=== PATIENT | male | born 1995 | race Hispanic/Latino ===

== ENCOUNTER 2018-03-17 21:09 | Observation (INO) | payer BC, OTHER ==
[2018-03-17] MEDS ORDERED: Sodium Chloride 0.9% 1,000 ML IV STA (22:12)
--- NOTE | 2018-03-17 22:36 | ED PDOC ---
HPI: Abdomen Time Seen by Provider: 03/17/18 21:39 Chief Complaint (Nursing): Abdominal Pain History Per: Patient History/Exam Limitations: no limitations Onset/Duration Of Symptoms: Hrs Outside of [place] travel?: No Current Symptoms Are (Timing): Better Location Of Pain/Discomfort: RLQ, Periumbilical Quality Of Discomfort: Unable To Describe Associated Symptoms: Fever, Chills, Nausea, Vomiting. denies: Diarrhea, Loss Of Appetite Additional Complaint(s): No PMHX presenting with abdominal pain, states that it started this afternoon, R sided, assoc. w/ 4 episodes of non bloody, non bilious vomiting. States he felt fevrish and had chills at home. Normal BM's, no urine output today, patient states that he feels dehydrated. No surgeries in the past. States he' d had similar symptoms in the past 8 months approx. 4 times, but never to this extent. Past Medical History Reviewed: Historical Data, Nursing Documentation, Vital Signs Vital Signs: Last Vital Signs Temp 99.1 F 03/18/18 02:18 Pulse 91 H 03/18/18 02:18 Resp 20 03/18/18 02:18 BP 109/66 03/18/18 02:18 Pulse Ox 99 03/18/18 02:18 - Surgical History Surgical History: No Surg Hx - Family History Family History: States: Unknown Family Hx - Home Medications Home Medications: Ambulatory Orders Medication Instructions Recorded No Known Home Med 03/18/18 - Allergies Allergies/Adverse Reactions: Allergies Allergy/AdvReac Type Severity Reaction Status Date / Time No Known Allergies Allergy Verified 03/17/18 21:35 Review of Systems ROS Statement: Except As Marked, All Systems Reviewed And Found Negative Constitutional: Positive for: Fever, Chills Gastrointestinal: Positive for: Nausea, Vomiting, Abdominal Pain Physical Exam - Reviewed Nursing Documentation Reviewed: Yes Vital Signs Reviewed: Yes - Physical Exam Appears: Positive for: Well, Non-toxic, No Acute Distress Head Exam: Positive for: ATRAUMATIC, NORMAL INSPECTION, NORMOCEPHALIC Skin: Positive for: Normal Color, Warm, DRY Eye Exam: Positive for: EOMI, Normal appearance, PERRL ENT: Positive for: Normal ENT Inspection Neck: Positive for: Normal, Painless ROM Cardiovascular/Chest: Positive for: Regular Rate, Rhythm Respiratory: Positive for: CNT, Normal Breath Sounds Gastrointestinal/Abdominal: Positive for: Normal Exam, Soft, Tenderness (RLQ, periumbilical tenderness). Negative for: Mass, Guarding, Rebound Back: Positive for: Normal Inspection Extremity: Positive for: Normal ROM Neurologic/Psych: Positive for: Alert, Oriented - Laboratory Results Result Diagrams: 03/17/18 23:17 03/17/18 23:17 - ECG O2 Sat by Pulse Oximetry: 96 Pulse Ox Interpretation: Normal Medical Decision Making Medical Decision MakinPM A/P: No PMHx p/w RLQ/periumbilican pain -patient well appearing with normal vitals -ddx: appendicitis, mesenteric adenitis, colitis -will need labs, CT, re-eval 0023 CT FINDINGS: Lung bases: Unremarkable. No mass. No consolidation. ABDOMEN: Liver: Unremarkable. No mass. Gallbladder and bile ducts: Unremarkable. No calcified stones. No ductal dilation. Pancreas: Unremarkable. No mass. No ductal dilation. Spleen: Unremarkable. No splenomegaly. Adrenals: Unremarkable. No mass. Kidneys and ureters: Unremarkable. No solid mass. No hydronephrosis. Stomach and bowel: Unremarkable. No obstruction. No mucosal thickening. PELVIS: Appendix: The appendix demonstrates mild diffuse distention measuring 10 mm, consistent with mild or early acute appendicitis.There is adjacent inflammatory stranding. No rupture. No abscess. Bladder: Unremarkable. No mass. Reproductive: Unremarkable as visualized. ABDOMEN and PELVIS: Intraperitoneal space: Unremarkable. No free air. No significant fluid collection. Bones/joints: No acute fracture. No dislocation. Soft tissues: Unremarkable. Vasculature: Unremarkable. No abdominal aortic aneurysm. Lymph nodes: Unremarkable. No enlarged lymph nodes. IMPRESSION: Findings suspicious for acute appendicitis. [address] result/diagnosis with patient, who states his symptoms are much improved. Spoke to front loader residential driver who agrees to evaluate patient. (Attending: Dr. Morocho ) [address] Sloan, who accepts patient's admission to [facility]. ~ Scribe Attestation: Documented by Cass Licea, acting as a scribe for Shoaib Zimmerman MD. Provider Scribe Attestation: All medical record entries made by the Scribe were at my direction and personally dictated by me. I have reviewed the chart and agree that the record accurately reflects my personal performance of the history, physical exam, medical decision making, and the department course for this patient. I have also personally directed, reviewed, and agree with the discharge instructions and disposition. Disposition - Clinical Impression Clinical Impression: Appendicitis - Disposition Disposition Time: 00:30 Condition: STABLE
[2018-03-17 23:22] LABS: BASO % 0.3 % (0.0-2.0); EOS % 0.1 % (0.0-4.0); HEMOGLOBIN 15.4 g/dL (12.0-18.0); LYMPH # 0.7 K/uL (1.0-4.3); LYMPH % 6.2 % (20.0-40.0); MEAN CELL VOLUME 86.3 fl (80.0-94.0); MEAN CORPUSCULAR HEMOGLOBIN 29.2 pg (27.0-31.0); MEAN CORPUSCULAR HGB CONC 33.8 g/dL (33.0-37.0); MEAN PLATELET VOLUME 10.4 fl (7.2-11.7); MONO # 0.1 K/uL (0.0-0.8); MONO % 0.6 % (0.0-10.0); NEUT # 9.9 K/uL (1.8-7.0); NEUT % 92.8 % (50.0-75.0); NRBC % 0.2 % (0.0-0.0); PLATELET COUNT 188 K/uL (130-400); RBC 5.29 Mil/uL (4.40-5.90); RED CELL DISTRIBUTION WIDTH 12.6 % (11.5-14.5); WHITE BLOOD COUNT 10.6 K/uL (4.8-10.8)
[2018-03-17 23:31] LABS: ALBUMIN 4.6 g/dL (3.5-5.0); BLOOD UREA NITROGEN 15 mg/dl (9-20); CALCIUM 9.8 mg/dL (8.4-10.2); GFR AFRICAN-AMERICAN > 60; GFR NON-AFRICAN AMERICAN > 60
[2018-03-17 23:32] LABS: ALB/GLOB RATIO 1.4 (1.0-2.1); ALT/SGPT 39 U/L (21-72); AST/SGOT 32 U/L (17-59); BILIRUBIN,DIRECT 0.3 mg/ml (0.0-0.4); LIPASE 91 U/L (23-300)
[2018-03-17] MEDS ORDERED: Sodium Chloride 0.9% 100 ML ONE (23:41)
[2018-03-17] MEDS ORDERED: Iodixanol 320 MG/ML 100 ML BOTTLE IV ONE (23:41)
--- NOTE | 2018-03-18 00:23 | CT ---
EXAM: CT Abdomen and Pelvis With Intravenous Contrast CLINICAL HISTORY: 22 years old, male; Pain; Abdominal pain; Localized; Right lower quadrant (rlq); Additional info: Periumbilical, rlq pain, R/O appendicitis TECHNIQUE: Axial computed tomography images of the abdomen and pelvis with intravenous contrast. All CT scans at this facility use one or more dose reduction techniques, viz.: automated exposure control; ma/kV adjustment per patient size (including targeted exams where dose is matched to indication; i.e. head); or iterative reconstruction technique. Coronal and sagittal reformatted images were created and reviewed. CONTRAST: 95 mL of [id number] administered intravenously. COMPARISON: No relevant prior studies available. FINDINGS: Lung bases: Unremarkable. No mass. No consolidation. ABDOMEN: Liver: Unremarkable. No mass. Gallbladder and bile ducts: Unremarkable. No calcified stones. No ductal dilation. Pancreas: Unremarkable. No mass. No ductal dilation. Spleen: Unremarkable. No splenomegaly. Adrenals: Unremarkable. No mass. Kidneys and ureters: Unremarkable. No solid mass. No hydronephrosis. Stomach and bowel: Unremarkable. No obstruction. No mucosal thickening. PELVIS: Appendix: The appendix demonstrates mild diffuse distention measuring 10 mm, consistent with mild or early acute appendicitis.There is adjacent inflammatory stranding. No rupture. No abscess. Bladder: Unremarkable. No mass. Reproductive: Unremarkable as visualized. ABDOMEN and PELVIS: Intraperitoneal space: Unremarkable. No free air. No significant fluid collection. Bones/joints: No acute fracture. No dislocation. Soft tissues: Unremarkable. Vasculature: Unremarkable. No abdominal aortic aneurysm. Lymph nodes: Unremarkable. No enlarged lymph nodes. IMPRESSION: Findings suspicious for acute appendicitis.
[2018-03-18] MEDS ORDERED: Sodium Chloride 0.9% 1,000 ML IV STA (00:24)
[2018-03-18] MEDS ORDERED: Piperacillin/Tazobact 3.375 GM in Sodium Chloride 0.9% 100 ML IVPB STA (00:24)
--- NOTE | 2018-03-18 00:38 | CP.PCM.HP ---
History of Present Illness - History of Present Illness History of Present Illness: PCP: None Chief Complaint: Abdominal pain The patient was seen and examined in the ED HPI: 22 years old male with no significant past medical hx comes with gradually worsening , continuous RLQ abdominal pain radiating to the Periumbilical region and of few hours duration. This was associated with fever, chills,nausea, vomits. Any foods he attempted to take by mouth was vomited out. He has had similar symptoms of abdominal pain in the past 8 months but these were of short duration ceased spontaneously. PMH: fracture right ankle PSH: [place] tooth removal SH: No illegal substance use; No cigarettes; Occasional alcohol, FH: Grand father with heart disease Grand mother with Cancer Mother's sister with breast cancer Allergies: NKDA Medications: Denies Present on Admission - Present on Admission Any Indicators Present on Admission: No History of DVT/PE: No History of Uncontrolled Diabetes: No Urinary Catheter: No Decubitus Ulcer Present: No Review of Systems - Constitutional Constitutional: Chills, Fever. absent: Anorexia, Headache - EENT Eyes: absent: Floaters, Itchy Eyes, Requires Corrective Lenses, Sees Flashes Ears: absent: Decreased Hearing, Ear Discharge, Ear Pain, Tinnitus Nose/Mouth/Throat: absent: Epistaxis, Nasal Congestion, Sinus Pain, Sinus Pressure - Cardiovascular Cardiovascular: absent: Chest Pain, Dyspnea, Edema - Respiratory Respiratory: absent: Cough, Dyspnea, Wheezing, Stridor - Gastrointestinal Gastrointestinal: Abdominal Pain, Nausea, Vomiting. absent: Constipation, Diarrhea - Musculoskeletal Musculoskeletal: absent: Arthralgias, Muscle Cramps, Myalgias - Integumentary Integumentary: absent: Pruritus, Rash, Skin Ulcer, Sores, Striae, Swelling - Neurological Neurological: absent: Confusion, Dizziness, Focal Weakness, Headaches, Weakness - Psychiatric Psychiatric: absent: Anxiety, Depression, Panic Attacks - Endocrine Endocrine: absent: Palpitations, Polydipsia, Polyphagia, Polyuria - Hematologic/Lymphatic Hematologic: absent: Easy Bleeding, Easy Bruising Past Patient History - Past Medical History & Family History Past Medical History?: Yes - Past Social History Smoking Status: Never Smoked Chewing Tobacco Use: No Cigar Use: No Alcohol: Social - CARDIAC Hx Cardiac Disorders: No - PULMONARY Hx Respiratory Disorders: No - NEUROLOGICAL Hx Neurological Disorder: No - HEENT Hx HEENT Problems: No - RENAL Hx Chronic Kidney Disease: No - ENDOCRINE/METABOLIC Hx Endocrine Disorders: No - HEMATOLOGICAL/ONCOLOGICAL Hx Blood Disorders: No - INTEGUMENTARY Hx Dermatological Problems: No - MUSCULOSKELETAL/RHEUMATOLOGICAL Hx Musculoskeletal Disorders: Yes Hx Fractures: Yes (right ankle fracture) - GASTROINTESTINAL Hx Gastrointestinal Disorders: No - GENITOURINARY/GYNECOLOGICAL Hx Genitourinary Disorders: No - PSYCHIATRIC Hx Psychophysiologic Disorder: No Hx Substance Use: No - SURGICAL HISTORY Hx Surgeries: No - ANESTHESIA Hx Anesthesia: No Meds Allergies/Adverse Reactions: Allergies Allergy/AdvReac Type Severity Reaction Status Date / Time No Known Allergies Allergy Verified 03/17/18 21:35 Physical Exam - Constitutional Appears: No Acute Distress - Head Exam Head Exam: ATRAUMATIC, NORMAL INSPECTION, NORMOCEPHALIC - Eye Exam Eye Exam: EOMI, Normal appearance Pupil Exam: NORMAL ACCOMODATION, PERRL - ENT Exam ENT Exam: Mucous Membranes Moist, Normal Exam, Normal External Ear Exam, Normal Oropharynx - Neck Exam Neck exam: Positive for: Full Rom, Normal Inspection. Negative for: Lymphadenopathy, Tenderness - Respiratory Exam Respiratory Exam: Clear to Auscultation Bilateral. absent: Rales, Rhonchi, Wheezes - Cardiovascular Exam Cardiovascular Exam: REGULAR RHYTHM, RRR, +S1, +S2. absent: Gallop, JVD - GI/Abdominal Exam Additional comments: Flat, soft, tender at th eRLQ , no guarding no rebound tenderness, +ve bowel sounds - Rectal Exam Rectal Exam: Deferred - Extremities Exam Extremities exam: Positive for: full ROM, normal inspection. Negative for: calf tenderness, pedal edema - Back Exam Back exam: NORMAL INSPECTION. absent: CVA tenderness (L), CVA tenderness (R) - Neurological Exam Neurological exam: Alert, CN II-XII Intact, Oriented x3, Reflexes Normal - Psychiatric Exam Psychiatric exam: Normal Affect, Normal Mood - Skin Skin Exam: Dry, Intact, Normal Color, Warm Results - Vital Signs Recent Vital Signs: Last Vital Signs Temp 100.7 F H 03/17/18 23:35 Pulse 98 H 03/17/18 23:35 Resp 18 03/17/18 23:35 BP 113/55 L 03/17/18 23:35 Pulse Ox 96 03/18/18 00:35 - Labs Result Diagrams: 03/17/18 23:17 03/17/18 23:17 Labs: Laboratory Results - last 24 hr 03/17/18 03/17/18 03/17/18 23:17 23:17 23:17 WBC 10.6 RBC 5.29 Hgb 15.4 Hct 45.7 MCV 86.3 MCH 29.2 MCHC 33.8 RDW 12.6 Plt Count 188 MPV 10.4 Neut % (Auto) 92.8 H Lymph % (Auto) 6.2 L Gove % (Auto) 0.6 Eos % (Auto) 0.1 Baso % (Auto) 0.3 Neut # (Auto) 9.9 H Lymph # (Auto) 0.7 L Gove # (Auto) 0.1 Eos # (Auto) 0.0 Baso # (Auto) 0.0 Sodium 138 Potassium 3.9 Chloride 99 Carbon Dioxide 21 L Anion Gap 22 H BUN 15 Creatinine 0.9 Est GFR ( Amer) > 60 Est GFR (Non-Af Amer) > 60 Random Glucose 139 H Lactic Acid 2.4 H Calcium 9.8 Total Bilirubin 1.7 H Direct Bilirubin 0.3 AST 32 ALT 39 Alkaline Phosphatase 63 Total Protein 7.8 Albumin 4.6 Globulin 3.2 Albumin/Globulin Ratio 1.4 Lipase 91 - Imaging and Cardiology CT scan - abdomen Status: Report reviewed by me Additional comment: EXAM: CT Abdomen and Pelvis With Intravenous Contrast CLINICAL HISTORY: FINDINGS: Lung bases: Unremarkable. No mass. No consolidation. ABDOMEN: Liver: Unremarkable. No mass. Gallbladder and bile ducts: Unremarkable. No calcified stones. No ductal dilation. Pancreas: Unremarkable. No mass. No ductal dilation. Spleen: Unremarkable. No splenomegaly. Adrenals: Unremarkable. No mass. Kidneys and ureters: Unremarkable. No solid mass. No hydronephrosis. Stomach and bowel: Unremarkable. No obstruction. No mucosal thickening. PELVIS: Appendix: The appendix demonstrates mild diffuse distention measuring 10 mm, consistent with mild or early acute appendicitis.There is adjacent inflammatory stranding. No rupture. No abscess. Bladder: Unremarkable. No mass. Reproductive: Unremarkable as visualized. ABDOMEN and PELVIS: Intraperitoneal space: Unremarkable. No free air. No significant fluid collection. Bones/joints: No acute fracture. No dislocation. Soft tissues: Unremarkable. Vasculature: Unremarkable. No abdominal aortic aneurysm. Lymph nodes: Unremarkable. No enlarged lymph nodes. IMPRESSION: Findings suspicious for acute appendicitis. Assessment & Plan - Assessment and Plan (Free Text) Assessment: #. Acute Appendicitis Plan: 22 years old male with no significant past medical hx comes with gradually worsening , continuous RLQ abdominal pain radiating to the Periumbilical region and of few hours duration. This was associated with fever, chills,nausea, vomits. #. Acute Appendicitis - Consult Dr Morocho Surgery - NPO - IV fluids - zosyn - pain management #. DVT Prophylaxis with SCD #. Code Status: Full - Date & Time Date: 03/18/18 Time: 00:37
[2018-03-18 00:45] LABS: URINE BILIRUBIN NEGATIVE (NEGATIVE); URINE BLOOD NEGATIVE (NEGATIVE); URINE CLARITY SLIGHTY-CLOUDY (Clear); URINE COLOR YELLOW (YELLOW); URINE GLUCOSE (UA) NEG (Normal); URINE LEUKOCYTE ESTERASE NEG Leu/uL (Negative); URINE PROTEIN NEGATIVE (NEGATIVE); URINE UROBILINOGEN 0.2-1.0 mg/dL (0.2-1.0)
[2018-03-18] MEDS ORDERED: Piperacillin/Tazobact 3.375 gm Inj IVPB ONE (01:04)
--- NOTE | 2018-03-18 01:16 | CP.PCM.CON ---
<Roberto Villanueva - Last Filed: 03/18/18 02:32> History of Present Illness - History of Present Illness History of Present Illness: Surgery Consult Note. Dr. Morocho 22yo M with no significant PMHx here for evaluation of abdominal pain. Pain described as sharp, located in the right lower quadrant, constant. Pain started this afternoon, was initially located around the umbilicus and has now localized to the RLQ. Associated with nausea, and vomiting x3 episodes today, non bilious, non bloody. Also c/o fevers and chills at home. States that he has had similar episodes 3-4 times in the past 9 months. However, this episode has been the worst. He was unable to tolerate any PO intake today due to nausea. Denies any Chest pain, no shortness of breath. No headaches. No urinary complaints. No change in bowel habits. No sick contacts. PMHx: Denies PSHx: Denies Family Hx: Grandfather - Heart disease Social Hx: Denies tobacco use. Occasional ETOH use. Rare marijuana use NKDA Review of Systems - Review of Systems All systems: reviewed and no additional remarkable complaints except - Constitutional Constitutional: Chills, Fever - Cardiovascular Cardiovascular: absent: Chest Pain, Dyspnea - Respiratory Respiratory: absent: Cough, Dyspnea - Gastrointestinal Gastrointestinal: Abdominal Pain, Nausea, Vomiting. absent: Diarrhea, Hematemesis, Hematochezia, Melena - Genitourinary Genitourinary: absent: Dysuria - Neurological Neurological: absent: Focal Weakness, Headaches Past Patient History - Past Medical History & Family History Past Medical History?: Yes Past Family History: Reviewed and not pertinent - Past Social History Smoking Status: Never Smoked Alcohol: Occasional Drugs: Cannabis (rare cannabis use) - PSYCHIATRIC Hx Substance Use: No - SURGICAL HISTORY Hx Surgeries: No - ANESTHESIA Hx Anesthesia: No Meds Allergies/Adverse Reactions: Allergies Allergy/AdvReac Type Severity Reaction Status Date / Time No Known Allergies Allergy Verified 03/17/18 21:35 - Medications Medications: Current Medications Sodium Chloride (Sodium Chloride 0.9%) 1,000 mls @ 250 mls/hr IV .Q4H STA Stop: 03/18/18 04:23 Piperacillin Sod/Tazobactam (Sod 3.375 gm/ Sodium Chloride) 100 mls @ 100 mls/ hr IVPB STAT STA PRN Reason: Protocol Stop: 03/18/18 01:23 Physical Exam - Constitutional Appears: Well, No Acute Distress - Head Exam Head Exam: ATRAUMATIC, NORMAL INSPECTION, NORMOCEPHALIC - Eye Exam Eye Exam: EOMI, Normal appearance - ENT Exam ENT Exam: Mucous Membranes Dry - Respiratory Exam Respiratory Exam: NORMAL BREATHING PATTERN. absent: Accessory Muscle Use, Respiratory Distress - Cardiovascular Exam Cardiovascular Exam: RRR. absent: JVD - GI/Abdominal Exam GI & Abdominal Exam: Soft. absent: Distended, Firm Additional comments: Soft, tender to palpation RLQ. Mild rebound tenderness. Voluntary guarding. No psoa's sign. No obturator sign. +McBurney's point tenderness. No right flank tenderness. No masses, no apparent hernias. - Extremities Exam Extremities exam: Positive for: normal inspection. Negative for: calf tenderness - Back Exam Back exam: NORMAL INSPECTION - Neurological Exam Neurological exam: Alert, Oriented x3 - Psychiatric Exam Psychiatric exam: Normal Affect, Normal Mood - Skin Skin Exam: Diaphoretic, Intact, Normal Color, Warm Results - Vital Signs Recent Vital Signs: Last Vital Signs Temp 100.7 F H 03/17/18 23:35 Pulse 98 H 03/17/18 23:35 Resp 18 03/17/18 23:35 BP 113/55 L 03/17/18 23:35 Pulse Ox 96 03/18/18 00:35 - Labs Result Diagrams: 03/17/18 23:17 03/17/18 23:17 Labs: Laboratory Results - last 24 hr 03/17/18 03/17/18 03/17/18 23:17 23:17 23:17 WBC 10.6 RBC 5.29 Hgb 15.4 Hct 45.7 MCV 86.3 MCH 29.2 MCHC 33.8 RDW 12.6 Plt Count 188 MPV 10.4 Neut % (Auto) 92.8 H Lymph % (Auto) 6.2 L Woods % (Auto) 0.6 Eos % (Auto) 0.1 Baso % (Auto) 0.3 Neut # (Auto) 9.9 H Lymph # (Auto) 0.7 L Woods # (Auto) 0.1 Eos # (Auto) 0.0 Baso # (Auto) 0.0 Sodium 138 Potassium 3.9 Chloride 99 Carbon Dioxide 21 L Anion Gap 22 H BUN 15 Creatinine 0.9 Est GFR ( Amer) > 60 Est GFR (Non-Af Amer) > 60 Random Glucose 139 H Lactic Acid 2.4 H Calcium 9.8 Total Bilirubin 1.7 H Direct Bilirubin 0.3 AST 32 ALT 39 Alkaline Phosphatase 63 Total Protein 7.8 Albumin 4.6 Globulin 3.2 Albumin/Globulin Ratio 1.4 Lipase 91 Urine Color Urine Clarity Urine pH Ur Specific Hailey Urine Protein Urine Glucose (UA) Urine Ketones Urine Blood Urine Nitrate Urine Bilirubin Urine Urobilinogen Ur Leukocyte Esterase Urine RBC (Auto) Urine Microscopic WBC 03/18/18 00:01 WBC RBC Hgb Hct MCV MCH MCHC RDW Plt Count MPV Neut % (Auto) Lymph % (Auto) Woods % (Auto) Eos % (Auto) Baso % (Auto) Neut # (Auto) Lymph # (Auto) Woods # (Auto) Eos # (Auto) Baso # (Auto) Sodium Potassium Chloride Carbon Dioxide Anion Gap BUN Creatinine Est GFR ( Amer) Est GFR (Non-Af Amer) Random Glucose Lactic Acid Calcium Total Bilirubin Direct Bilirubin AST ALT Alkaline Phosphatase Total Protein Albumin Globulin Albumin/Globulin Ratio Lipase Urine Color Yellow Urine Clarity Slighty-cloudy Urine pH 6.0 Ur Specific Hailey 1.020 Urine Protein Negative Urine Glucose (UA) Neg Urine Ketones 20 Urine Blood Negative Urine Nitrate Negative Urine Bilirubin Negative Urine Urobilinogen 0.2-1.0 Ur Leukocyte Esterase Neg Urine RBC (Auto) 1 Urine Microscopic WBC 1 Assessment & Plan - Assessment and Plan (Free Text) Assessment: 22yo M with early appendicitis - CT Abd/Pelvis noted. - Febrile. WBC 10.9 with left shift Plan: - NPO except meds - IVF - IV abx - Pain management - anti-emetics - Tylenol prn fever - f/u AM labs - To OR in AM for lap appendectomy Further recs as per Dr. Rashawn Villanueva PGY1 surgery pager: [phone] <Rc Garcia - Last Filed: 03/18/18 10:21> History of Present Illness - History of Present Illness History of Present Illness: Patient was seen and examined at the bedside. Agree with resident's note above. Meds - Medications Medications: Current Medications Acetaminophen (Tylenol 325mg Tab) 650 mg PO Q4 PRN PRN Reason: Fever >100.4 F Last Admin: 03/18/18 08:01 Dose: 650 mg Hydromorphone HCl (Dilaudid) 0.5 mg IVP Q4H PRN PRN Reason: Pain, severe (8-10) Sodium Chloride (Sodium Chloride 0.9%) 1,000 mls @ 130 mls/hr IV .Q7H42M FRANKIE Stop: 03/19/18 01:26 Last Admin: 03/18/18 04:40 Dose: 130 mls/hr Piperacillin Sod/Tazobactam (Sod 3.375 gm/ Sodium Chloride) 100 mls @ 100 mls/ hr IVPB Q6 FRANKIE PRN Reason: Protocol Last Admin: 03/18/18 09:15 Dose: 100 mls/hr Ondansetron HCl (Zofran Inj) 4 mg IVP Q4 PRN PRN Reason: Nausea/Vomiting Results - Vital Signs Recent Vital Signs: Last Vital Signs Temp 99.6 F 03/18/18 10:14 Pulse 91 H 03/18/18 08:25 Resp 18 03/18/18 08:25 BP 129/65 03/18/18 08:25 Pulse Ox 95 03/18/18 08:25 - Labs Result Diagrams: 03/18/18 05:55 03/18/18 05:55 Labs: Laboratory Results - last 24 hr 03/17/18 03/17/18 03/17/18 23:17 23:17 23:17 WBC 10.6 RBC 5.29 Hgb 15.4 Hct 45.7 MCV 86.3 MCH 29.2 MCHC 33.8 RDW 12.6 Plt Count 188 MPV 10.4 Neut % (Auto) 92.8 H Lymph % (Auto) 6.2 L Woods % (Auto) 0.6 Eos % (Auto) 0.1 Baso % (Auto) 0.3 Neut # (Auto) 9.9 H Lymph # (Auto) 0.7 L Woods # (Auto) 0.1 Eos # (Auto) 0.0 Baso # (Auto) 0.0 Neutrophils % (Manual) 91 H Band Neutrophils % 2 Lymphocytes % (Manual) 4 L Reactive Lymphs % 2 H Monocytes % (Manual) 1 Platelet Estimate Normal RBC Morphology Normal Macrocytosis (manual) Slight PT INR APTT Sodium 138 Potassium 3.9 Chloride 99 Carbon Dioxide 21 L Anion Gap 22 H BUN 15 Creatinine 0.9 Est GFR ( Amer) > 60 Est GFR (Non-Af Amer) > 60 Random Glucose 139 H Lactic Acid 2.4 H Calcium 9.8 Total Bilirubin 1.7 H Direct Bilirubin 0.3 AST 32 ALT 39 Alkaline Phosphatase 63 Total Protein 7.8 Albumin 4.6 Globulin 3.2 Albumin/Globulin Ratio 1.4 Lipase 91 Urine Color Urine Clarity Urine pH Ur Specific Hailey Urine Protein Urine Glucose (UA) Urine Ketones Urine Blood Urine Nitrate Urine Bilirubin Urine Urobilinogen Ur Leukocyte Esterase Urine RBC (Auto) Urine Microscopic WBC 03/18/18 03/18/18 03/18/18 00:01 05:50 05:55 WBC 16.0 H D RBC 4.87 Hgb 14.3 Hct 41.9 MCV 86.1 MCH 29.3 MCHC 34.0 RDW 13.1 Plt Count 161 MPV 10.2 Neut % (Auto) 93.1 H Lymph % (Auto) 2.6 L Woods % (Auto) 3.9 Eos % (Auto) 0.1 Baso % (Auto) 0.3 Neut # (Auto) 14.9 H Lymph # (Auto) 0.4 L Woods # (Auto) 0.6 Eos # (Auto) 0.0 Baso # (Auto) 0.1 Neutrophils % (Manual) 85 H Band Neutrophils % 9 H Lymphocytes % (Manual) 3 L Reactive Lymphs % Monocytes % (Manual) 3 Platelet Estimate Normal RBC Morphology Normal Macrocytosis (manual) PT INR APTT Sodium Potassium Chloride Carbon Dioxide Anion Gap BUN Creatinine Est GFR ( Amer) Est GFR (Non-Af Amer) Random Glucose Lactic Acid 1.1 Calcium Total Bilirubin Direct Bilirubin AST ALT Alkaline Phosphatase Total Protein Albumin Globulin Albumin/Globulin Ratio Lipase Urine Color Yellow Urine Clarity Slighty-cloudy Urine pH 6.0 Ur Specific Hailey 1.020 Urine Protein Negative Urine Glucose (UA) Neg Urine Ketones 20 Urine Blood Negative Urine Nitrate Negative Urine Bilirubin Negative Urine Urobilinogen 0.2-1.0 Ur Leukocyte Esterase Neg Urine RBC (Auto) 1 Urine Microscopic WBC 1 03/18/18 03/18/18 05:55 05:55 WBC RBC Hgb Hct MCV MCH MCHC RDW Plt Count MPV Neut % (Auto) Lymph % (Auto) Woods % (Auto) Eos % (Auto) Baso % (Auto) Neut # (Auto) Lymph # (Auto) Woods # (Auto) Eos # (Auto) Baso # (Auto) Neutrophils % (Manual) Band Neutrophils % Lymphocytes % (Manual) Reactive Lymphs % Monocytes % (Manual) Platelet Estimate RBC Morphology Macrocytosis (manual) PT 13.7 H INR 1.2 APTT 27.4 Sodium 141 Potassium 4.3 Chloride 102 Carbon Dioxide 24 Anion Gap 19 BUN 14 Creatinine 1.1 Est GFR ( Amer) > 60 Est GFR (Non-Af Amer) > 60 Random Glucose 118 H Lactic Acid Calcium 8.8 Total Bilirubin 1.7 H Direct Bilirubin AST 29 ALT 39 Alkaline Phosphatase 52 Total Protein 6.9 Albumin 3.9 Globulin 3.0 Albumin/Globulin Ratio 1.3 Lipase Urine Color Urine Clarity Urine pH Ur Specific Hailey Urine Protein Urine Glucose (UA) Urine Ketones Urine Blood Urine Nitrate Urine Bilirubin Urine Urobilinogen Ur Leukocyte Esterase Urine RBC (Auto) Urine Microscopic WBC - Imaging and Cardiology CT scan - abdomen Status: Image reviewed by me, Report reviewed by me
[2018-03-18 03:29] LABS: BANDS 2 % (0-2); LYMPHOCYTE 4 % (20-50); MONOCYTE 1 % (0-10); NEUTROPHIL 91 % (42-75); REACTIVE LYMPHOCYTES 2 % (0-0); TOTAL CELLS COUNTED 100
[2018-03-18 03:30] LABS: PLATELET ESTIMATE NORMAL (NORMAL)
[2018-03-18] MEDS: Piperacillin/Tazobact 3.375 GM in Sodium Chloride 0.9% 100 ML IVPB SCH ×4 (04:10→22:02)
[2018-03-18] MEDS: Sodium Chloride 0.9% 1,000 ML IV SCH ×3 (04:40→22:05)
[2018-03-18 06:50] LABS: BASO # 0.1 K/uL (0.0-0.2); BASO % 0.3 % (0.0-2.0); EOS % 0.1 % (0.0-4.0); HEMOGLOBIN 14.3 g/dL (12.0-18.0); LYMPH # 0.4 K/uL (1.0-4.3); LYMPH % 2.6 % (20.0-40.0); MEAN CELL VOLUME 86.1 fl (80.0-94.0); MEAN CORPUSCULAR HEMOGLOBIN 29.3 pg (27.0-31.0); MEAN PLATELET VOLUME 10.2 fl (7.2-11.7); MONO # 0.6 K/uL (0.0-0.8); MONO % 3.9 % (0.0-10.0); NEUT # 14.9 K/uL (1.8-7.0); NEUT % 93.1 % (50.0-75.0); NRBC % 0.1 % (0.0-0.0); PLATELET COUNT 161 K/uL (130-400); RBC 4.87 Mil/uL (4.40-5.90); RED CELL DISTRIBUTION WIDTH 13.1 % (11.5-14.5)
[2018-03-18 07:10] LABS: ALB/GLOB RATIO 1.3 (1.0-2.1); ALBUMIN 3.9 g/dL (3.5-5.0); ALT/SGPT 39 U/L (21-72); AST/SGOT 29 U/L (17-59); BLOOD UREA NITROGEN 14 mg/dl (9-20); CALCIUM 8.8 mg/dL (8.4-10.2); GFR AFRICAN-AMERICAN > 60; GFR NON-AFRICAN AMERICAN > 60
[2018-03-18 07:19] LABS: INR 1.2 (0.9-1.2); PARTIAL THROMBOPLASTIN TIME 27.4 Seconds (25.6-37.1); PROTHROMBIN TIME 13.7 Seconds (9.8-13.1)
[2018-03-18 10:07] LABS: BANDS 9 % (0-2); LYMPHOCYTE 3 % (20-50); MONOCYTE 3 % (0-10); NEUTROPHIL 85 % (42-75); PLATELET ESTIMATE NORMAL (NORMAL); TOTAL CELLS COUNTED 100
[2018-03-18] MEDS ORDERED: Bupivacaine 0.5% Inj(30mL) ONE (12:47)
[2018-03-18] MEDS ORDERED: Succinylcholine 200 mg/10 ml Inj IV ONE (12:50)
[2018-03-18] MEDS ORDERED: Propofol 10 mg/ml Inj (20 ML) ONE (12:50)
[2018-03-18] MEDS ORDERED: Lidocaine 4% (Laryng-O-Jet) Kit MM ONE (12:50)
[2018-03-18] MEDS ORDERED: Phenylephrine 10 mg/ml Inj ONE (12:52)
[2018-03-18] MEDS ORDERED: Rocuronium 10 mg/ml (5 ml) ONE (12:54)
[2018-03-18] MEDS ORDERED: Lactated Ringer's 1,000 ML IV ONE ×2 (13:05→13:45)
[2018-03-18] MEDS ORDERED: Midazolam 2 MG/2 ML VIAL ONE (13:11)
[2018-03-18] MEDS ORDERED: Dexamethasone 4 mg/1 ml ONE (13:26)
[2018-03-18] MEDS ORDERED: Bupivacaine 0.5% 50 ML IJ ONE ×2 (13:39→14:05)
[2018-03-18] MEDS ORDERED: HYDROmorphone 0.5 mg/0.5 ml ISec IVP PRN (14:19)
--- NOTE | 2018-03-18 14:20 | PCM.SURG1 ---
Surgeon's Initial Post Op Note - Surgeon's Notes Surgeon: Dr. Garcia Adjunct Nursing Faculty: Guerline PGY1 Type of Anesthesia: General Endo Anesthesia Administered By: Dr. Hernandez Pre-Operative Diagnosis: Acute appendicitis Operative Findings: Acute appendicitis (see operative report) Post-Operative Diagnosis: Acute appendicitis Operation Performed: Laparoscopic Appendectomy Specimen/Specimens Removed: Appendix Estimated Blood Loss: EBL {In ML}: 5 Blood Products Given: N/A Drains Used: No Drains Post-Op Condition: Good Date of Surgery/Procedure: 03/18/18 Time of Surgery/Procedure: 01:30
[2018-03-18] MEDS: Lactated Ringer's 1,000 ML IV SCH ×2 (15:37→21:59)
[2018-03-18] MEDS: HYDROmorphone 0.5 mg/0.5 ml ISec IVP PRN ×2 (17:45→21:50)
[2018-03-19] MEDS: Lactated Ringer's 1,000 ML IV SCH (00:33)
[2018-03-19] MEDS: Piperacillin/Tazobact 3.375 GM in Sodium Chloride 0.9% 100 ML IVPB SCH (04:00)
[2018-03-19 06:23] LABS: HEMOGLOBIN 13.3 g/dL (12.0-18.0); MEAN CORPUSCULAR HEMOGLOBIN 29.2 pg (27.0-31.0); MEAN CORPUSCULAR HGB CONC 33.6 g/dL (33.0-37.0); RBC 4.54 Mil/uL (4.40-5.90); RED CELL DISTRIBUTION WIDTH 13.2 % (11.5-14.5); WHITE BLOOD COUNT 8.2 K/uL (4.8-10.8)
--- NOTE | 2018-03-19 06:52 | CP.PCM.PN ---
<Ney Cunha - Last Filed: 03/19/18 07:03> Subjective - Date & Time of Evaluation Date of Evaluation: 03/19/18 Time of Evaluation: 06:30 - Subjective Subjective: General Surgery Note for Dr. Garcia Patient seen and examined at bedside. No acute event overnight. Patient states pain is controlled. Denies nausea/vomiting. Patient tolerating regular diet. He is passing gas. Patinet has been afebrile. Patient has no complaints at this time. Objective - Vital Signs/Intake and Output Vital Signs (last 24 hours): Temp Pulse Resp BP Pulse Ox 98.5 F 81 20 130/70 98 03/19/18 05:00 03/19/18 04:00 03/19/18 04:00 03/19/18 04:00 03/19/18 04:00 Intake and Output: 03/18/18 03/19/18 18:59 06:59 Intake Total 1600 Output Total 50 Balance 1550 - Medications Medications: Current Medications Acetaminophen (Tylenol 325mg Tab) 650 mg PO Q4 PRN PRN Reason: Fever >100.4 F Last Admin: 03/18/18 08:01 Dose: 650 mg Hydromorphone HCl (Dilaudid) 0.5 mg IVP Q4H PRN PRN Reason: Pain, severe (8-10) Last Admin: 03/18/18 21:50 Dose: 0.5 mg Piperacillin Sod/Tazobactam (Sod 3.375 gm/ Sodium Chloride) 100 mls @ 100 mls/ hr IVPB Q6 FRANKIE PRN Reason: Protocol Last Admin: 03/19/18 04:00 Dose: 100 mls/hr Lactated Ringer's (Lactated Ringer's) 1,000 mls @ 100 mls/hr IV .Q10H FRANKIE Last Admin: 03/19/18 00:33 Dose: Not Given Ondansetron HCl (Zofran Inj) 4 mg IVP Q4 PRN PRN Reason: Nausea/Vomiting - Labs Labs: 03/18/18 05:55 03/18/18 05:55 PT 13.7 Seconds (9.8-13.1) H 03/18/18 05:55 INR 1.2 (0.9-1.2) 03/18/18 05:55 APTT 27.4 Seconds (25.6-37.1) 03/18/18 05:55 - Constitutional Appears: No Acute Distress - Head Exam Head Exam: ATRAUMATIC, NORMOCEPHALIC - Eye Exam Eye Exam: EOMI, Normal appearance Pupil Exam: PERRL - ENT Exam ENT Exam: Mucous Membranes Moist - Respiratory Exam Respiratory Exam: NORMAL BREATHING PATTERN - Cardiovascular Exam Cardiovascular Exam: REGULAR RHYTHM - GI/Abdominal Exam GI & Abdominal Exam: Soft, Normal Bowel Sounds. absent: Distended, Firm, Guarding, Rigid, Tenderness, Rebound Additional comments: surgical sites clean, dry and intact - Extremities Exam Extremities Exam: Normal Capillary Refill - Back Exam Back Exam: absent: CVA tenderness (L), CVA tenderness (R) - Neurological Exam Neurological Exam: Alert, Awake, Oriented x3 - Psychiatric Exam Psychiatric exam: Normal Affect, Normal Mood - Skin Skin Exam: Dry, Intact, Normal Color, Warm Assessment and Plan - Assessment and Plan (Free Text) Assessment: 22 M s/p laparscopic appendectomy POD#1 Plan: -Reg diet -Patient clear for discharge from surgical standpoint -Follow up as outpatient with Dr. Garcia within 1-2 weeks -No heavy lifting for a few weeks -Keep area clean and dry -Discussed with Dr. Radha Cunha PGY1 <Rc Garcia - Last Filed: 03/19/18 10:37> Subjective - Date & Time of Evaluation Time of Evaluation: 10:00 - Subjective Subjective: Patient was seen and examined at the bedside. Agree with resident's note above. Objective - Vital Signs/Intake and Output Vital Signs (last 24 hours): Temp Pulse Resp BP Pulse Ox 98 F 77 18 121/67 97 03/19/18 08:11 03/19/18 08:11 03/19/18 08:11 03/19/18 08:11 03/19/18 08:11 - Medications Medications: Current Medications Acetaminophen (Tylenol 325mg Tab) 650 mg PO Q4 PRN PRN Reason: Fever >100.4 F Last Admin: 03/18/18 08:01 Dose: 650 mg Hydromorphone HCl (Dilaudid) 0.5 mg IVP Q4H PRN PRN Reason: Pain, severe (8-10) Last Admin: 03/18/18 21:50 Dose: 0.5 mg Piperacillin Sod/Tazobactam (Sod 3.375 gm/ Sodium Chloride) 100 mls @ 100 mls/ hr IVPB Q6 FRANKIE PRN Reason: Protocol Last Admin: 03/19/18 04:00 Dose: 100 mls/hr Lactated Ringer's (Lactated Ringer's) 1,000 mls @ 100 mls/hr IV .Q10H FRANKIE Last Admin: 03/19/18 00:33 Dose: Not Given Ondansetron HCl (Zofran Inj) 4 mg IVP Q4 PRN PRN Reason: Nausea/Vomiting - Labs Labs: 03/19/18 05:55 03/19/18 05:55 PT 13.7 Seconds (9.8-13.1) H 03/18/18 05:55 INR 1.2 (0.9-1.2) 03/18/18 05:55 APTT 27.4 Seconds (25.6-37.1) 03/18/18 05:55 Assessment and Plan - Assessment and Plan (Free Text) Plan: - clear for discharge - patient will follow up with me in the office in 10 days to 2 weeks for post- op visit
[2018-03-19 06:59] LABS: ALB/GLOB RATIO 1.2 (1.0-2.1); ALBUMIN 3.4 g/dL (3.5-5.0); ALT/SGPT 42 U/L (21-72); AST/SGOT 26 U/L (17-59); BLOOD UREA NITROGEN 10 mg/dl (9-20); CALCIUM 8.9 mg/dL (8.4-10.2); GFR AFRICAN-AMERICAN > 60; GFR NON-AFRICAN AMERICAN > 60
--- NOTE | 2018-03-19 07:13 | OP ---
PROCEDURE DATE: 03/18/2018 PREOPERATIVE DIAGNOSIS: Acute appendicitis. POSTOPERATIVE DIAGNOSIS: Acute appendicitis. PROCEDURE: Laparoscopic appendectomy. SURGEON: Rc Garcia MD LINEN KEEPER: Guerline. TYPE OF ANESTHESIA: General endotracheal intubation. ANESTHESIOLOGIST: Freeman Hernandez MD IV FLUID INTAKE: Crystalloids. ESTIMATED BLOOD LOSS: 5 mL. INTRAOPERATIVE FINDINGS: Acute appendicitis. SPECIMENS: Appendix. BRIEF HISTORY: Mr. Rosas is a very pleasant 22-year-old gentleman who presented to the hospital complaining of right-sided abdominal pain and upon further investigation and a CAT scan, the patient was found to have acute appendicitis. All the risks and benefits of the procedure were explained to the patient and with the patient having a full understanding of all the risks and benefits involved, informed consent was obtained, and the patient was taken to the operating room for above-stated procedure. DESCRIPTION OF PROCEDURE: The patient was brought into the operating room and placed supine on the operating room table. Bilateral Flowtron boots were applied to the patient's lower extremities. After successful induction of anesthesia and successful endotracheal intubation by the anesthesia team, a Barrow catheter was inserted into the patient's urinary bladder and subsequent to that, the patient's abdomen was shaved and prepped with ChloraPrep stick and draped in the standard surgical fashion. Prior to the beginning of the procedure, time-out was called in the room and everyone in the room were in agreement. Using Veress needle, the patient's abdomen was entered at the umbilicus and pneumoperitoneum was achieved with good opening pressures. Once this was accomplished using an 11-blade scalpel knife, approximately 5-mm incision was made in the umbilicus in longitudinal fashion and subsequent to that, 5-mm trocar was introduced into the patient's abdomen. At this point in time, attention was turned to the lower mid abdomen using an 11-blade scalpel knife, 5-mm incision was made in transverse fashion in the lower mid abdomen and subsequent to that, another 5-mm trocar was introduced into the patient's abdomen. At that point in time, attention was turned to the left lower quadrant of the patient's abdomen using 11-blade scalpel knife, approximately 1-cm incision was made in a transverse fashion and subsequent to that, 12-mm trocar was introduced into the patient's abdomen. At this point in time using two Ferny and Gethi graspers, appendix was mobilized and subsequent to that using [place] dissector, the window was created between the appendix and the mesoappendix. Once this was created, appendix was taken right at the base with 45-mm blue load and Endo UMESH stapler and appendix was taken right at the base next to the cecum. Once this was accomplished, mesoappendix was taken with full loads of 45-mm dixon Endo UMESH stapler. Once that mesoappendix was completely freed up, endo catch bag was introduced into the patient's abdomen and appendix was placed inside of the bag and the bag was closed. At that point in time, staple line was inspected for hemostasis. Hemostasis was satisfactory. At this point in time, a 12-mm trocar together appendix and bag were removed from the patient's abdomen and passed off to the [facility] as a specimen. Fascial layer at 12-mm trocar site was closed with one interrupted 0 Vicryl suture on UR-6 needle and subsequent to that, the patient's abdomen was fully desufflated. The rest of the trocars were removed from the patient's abdomen and the skin was closed with 4-0 Monocryl suture in a running subcuticular fashion. At the end of the procedure, incision sites were infiltrated with Marcaine anesthetic. The patient's abdomen was washed and dried and Dermabond was applied to the site of the incisions. The patient was successfully extubated by the anesthesia team. Barrow catheter was removed. The patient was transferred to the stretcher and taken to the recovery room in a stable condition. At the end of the procedure, all instrument counts, needles, and sponges were correct. Rc Garcia MD
--- NOTE | 2018-03-19 07:52 | CP.PCM.DIS ---
Provider - Provider Date of Admission: 03/18/18 00:29 Attending physician: Sher Sloan Consults: Surgery : Dr Garcia Time Spent in preparation of Discharge (in minutes): 20 Diagnosis - Discharge Diagnosis (1) Acute appendicitis Status: Acute (2) S/P laparoscopic appendectomy Status: Acute Hospital Course - Lab Results Lab Results: Micro Results 03/17/18 23:17 Blood-Venous Blood Culture - Preliminary NO GROWTH AFTER 24 HOURS Most Recent Lab Values WBC 8.2 K/uL (4.8-10.8) 03/19/18 05:55 RBC 4.54 Mil/uL (4.40-5.90) 03/19/18 05:55 Hgb 13.3 g/dL (12.0-18.0) 03/19/18 05:55 Hct 39.5 % (35.0-51.0) 03/19/18 05:55 MCV 87.0 fl (80.0-94.0) 03/19/18 05:55 MCH 29.2 pg (27.0-31.0) 03/19/18 05:55 MCHC 33.6 g/dL (33.0-37.0) 03/19/18 05:55 RDW 13.2 % (11.5-14.5) 03/19/18 05:55 Plt Count 150 K/uL (130-400) 03/19/18 05:55 MPV 10.2 fl (7.2-11.7) 03/18/18 05:55 Neut % (Auto) 93.1 % (50.0-75.0) H 03/18/18 05:55 Lymph % (Auto) 2.6 % (20.0-40.0) L 03/18/18 05:55 [place] % (Auto) 3.9 % (0.0-10.0) 03/18/18 05:55 Eos % (Auto) 0.1 % (0.0-4.0) 03/18/18 05:55 Baso % (Auto) 0.3 % (0.0-2.0) 03/18/18 05:55 Neut # (Auto) 14.9 K/uL (1.8-7.0) H 03/18/18 05:55 Lymph # (Auto) 0.4 K/uL (1.0-4.3) L 03/18/18 05:55 [place] # (Auto) 0.6 K/uL (0.0-0.8) 03/18/18 05:55 Eos # (Auto) 0.0 K/uL (0.0-0.7) 03/18/18 05:55 Baso # (Auto) 0.1 K/uL (0.0-0.2) 03/18/18 05:55 Neutrophils % (Manual) 85 % (42-75) H 03/18/18 05:55 Band Neutrophils % 9 % (0-2) H 03/18/18 05:55 Lymphocytes % (Manual) 3 % (20-50) L 03/18/18 05:55 Reactive Lymphs % 2 % (0-0) H 03/17/18 23:17 Monocytes % (Manual) 3 % (0-10) 03/18/18 05:55 Platelet Estimate Normal (NORMAL) 03/18/18 05:55 RBC Morphology Normal (NORMAL) 03/18/18 05:55 Macrocytosis (manual) Slight 03/17/18 23:17 PT 13.7 Seconds (9.8-13.1) H 03/18/18 05:55 INR 1.2 (0.9-1.2) 03/18/18 05:55 APTT 27.4 Seconds (25.6-37.1) 03/18/18 05:55 Sodium 142 mmol/l (132-148) 03/19/18 05:55 Potassium 3.9 MMOL/L (3.6-5.0) 03/19/18 05:55 Chloride 103 mmol/L (98-107) 03/19/18 05:55 Carbon Dioxide 23 mmol/L (22-30) 03/19/18 05:55 Anion Gap 20 (10-20) 03/19/18 05:55 BUN 10 mg/dl (9-20) 03/19/18 05:55 Creatinine 0.8 mg/dl (0.8-1.5) 03/19/18 05:55 Est GFR ( Amer) > 60 03/19/18 05:55 Est GFR (Non-Af Amer) > 60 03/19/18 05:55 Random Glucose 122 mg/dL (75-110) H 03/19/18 05:55 Lactic Acid 1.1 MMOL/L (0.7-2.1) 03/18/18 05:50 Calcium 8.9 mg/dL (8.4-10.2) 03/19/18 05:55 Total Bilirubin 1.0 mg/dl (0.2-1.3) 03/19/18 05:55 Direct Bilirubin 0.3 mg/ml (0.0-0.4) 03/17/18 23:17 AST 26 U/L (17-59) 03/19/18 05:55 ALT 42 U/L (21-72) 03/19/18 05:55 Alkaline Phosphatase 51 U/L (38-126) 03/19/18 05:55 Total Protein 6.3 G/DL (6.3-8.2) 03/19/18 05:55 Albumin 3.4 g/dL (3.5-5.0) L 03/19/18 05:55 Globulin 2.8 gm/dL (2.2-3.9) 03/19/18 05:55 Albumin/Globulin Ratio 1.2 (1.0-2.1) 03/19/18 05:55 Lipase 91 U/L (23-300) 03/17/18 23:17 Urine Color Yellow (YELLOW) 03/18/18 00:01 Urine Clarity Slighty-cloudy (Clear) 03/18/18 00:01 Urine pH 6.0 (5.0-8.0) 03/18/18 00:01 Ur Specific [place] 1.020 (1.003-1.030) 03/18/18 00:01 Urine Protein Negative mg/dL (NEGATIVE) 03/18/18 00:01 Urine Glucose (UA) Neg mg/dL (Normal) 03/18/18 00:01 Urine Ketones 20 mg/dL (NEGATIVE) 03/18/18 00:01 Urine Blood Negative (NEGATIVE) 03/18/18 00:01 Urine Nitrate Negative (NEGATIVE) 03/18/18 00:01 Urine Bilirubin Negative (NEGATIVE) 03/18/18 00:01 Urine Urobilinogen 0.2-1.0 mg/dL (0.2-1.0) 03/18/18 00:01 Ur Leukocyte Esterase Neg [place]/uL (Negative) 03/18/18 00:01 Urine RBC (Auto) 1 /hpf (0-3) 03/18/18 00:01 Urine Microscopic WBC 1 /hpf (0-5) 03/18/18 00:01 - Hospital Course Hospital Course: 22 y/o gent , no significant PMH , came in bec of fever, RLQ and periumbilical abd pain accompanied by nausea and vomiting. CT of the Abdomen done in ED showed Acute Appendicitis changes. Pt was febrile and WBC ct went up to 16K. He was admitted , kept NPO , started on IVF hydration and IV Zosyn. Surgery was consulted. He then went for Laparoscopic Appendectomy. Post op , pt did well, Passing out flatus, no BM. His WBC ct normalized, his fever resolved. He is tolerating Regular diet. Cleared by Surgery for discharge. Discharge Exam - Head Exam Head Exam: ATRAUMATIC, NORMAL INSPECTION, NORMOCEPHALIC - Eye Exam Eye Exam: EOMI, Normal appearance, PERRL Pupil Exam: NORMAL ACCOMODATION - ENT Exam ENT Exam: Mucous Membranes Moist, Normal External Ear Exam - Neck Exam Neck exam: Full Rom - Respiratory Exam Respiratory Exam: NORMAL BREATHING PATTERN. absent: Respiratory Distress - Cardiovascular Exam Cardiovascular Exam: REGULAR RHYTHM, +S1, +S2 - GI/Abdominal Exam GI & Abdominal Exam: Normal Bowel Sounds, Soft, Tenderness Additional comments: small incisions from Laparoscopy with glue - Extremities Exam Extremities exam: full ROM, normal capillary refill, normal inspection, pedal pulses present - Back Exam Back exam: FULL ROM, NORMAL INSPECTION. absent: CVA tenderness (L), CVA tenderness (R) - Neurological Exam Neurological exam: Alert, CN II-XII Intact, Normal Gait, Oriented x3, Reflexes Normal - Psychiatric Exam Psychiatric exam: Normal Affect, Normal Mood - Skin Skin Exam: Dry, Normal Color, Warm Discharge Plan - Discharge Medications Prescriptions: Amoxicillin/Clavulanate [Augmentin 875 MG-125 MG] 1 tab PO BID #10 tab Metronidazole [Flagyl] 500 mg PO Q8 #15 tablet oxyCODONE/Acetaminophen [Percocet 5/325 mg Tab] 1 tab PO Q6 PRN #15 tab PRN Reason: Pain, Moderate (4-7) - Follow Up Plan Condition: GOOD Disposition: HOME/ ROUTINE Instructions: Appendectomy, Laparoscopic Surgery (DC) Additional Instructions: ff up with Dr Garcia in 1 wk no heavy lifting x 2 wks Referrals: Rc Garcia MD [Staff Provider] -
[2018-03-19 08:13] VITALS: BP 121/67; PULSE 77; RESP 18; TEMP 98; O2SAT 97
== END 2018-03-19 10:54 | disposition home or self-care (01) ==
LOC: H.ER 21:09 → INTOOBSV 03-18 00:29 → H.ERHOLD 03-18 00:29 → H.MEDSURG1 03-18 02:11
PROVIDERS: ADMIT Internal Medicine; ATTEND Internal Medicine
DX: K35.80 Unspecified acute appendicitis (principal); I88.0 Nonspecific mesenteric lymphadenitis; F12.90 Cannabis use, unspecified, uncomplicated
CPT/HCPCS: 36415; 44970; 74177; 80048; 80053; 80076; 81003; 83605; 83690; 85025; 85027; 85610; 85730; 87040; 88304; 96361; 96374; 96375; 99284; G0378; J0330; J1100; J1170; J1885; J2001; J2250; J2370; J2405; J2543; J2704; J2765; J3010; J7040; J7120; Q9967